=== PATIENT | male | born 1995 | race African-American/Black ===

== ENCOUNTER 2017-12-22 18:58 | Emergency (ER) | payer BC, SELFPAY ==
[2017-12-22 19:00] VITALS: BP 154/91; PULSE 101; RESP 21; TEMP 37.2; O2SAT 98; BMI 21.9
--- NOTE | 2017-12-22 19:51 | CT_ITS ---
STUDY: CT BRAIN WITHOUT CONTRAST REASON FOR EXAM: Male, 22 years old. Confusion. RADIATION DOSAGE (If Supplied By Facility): CTDIvol = ( 44.99 ) mGy, DLP = ( 779.24 ) mGycm TECHNIQUE: Transaxial CT imaging of the brain was performed without administration of intravenous contrast material. Individualized dose optimization techniques were used for this CT. COMPARISON: None. FINDINGS: Normal soft tissue structures. Normal calvarium. Normal size ventricles and extra-axial spaces for the patient's age. Normal white matter tracts of the cerebral hemispheres. Normal basal ganglia and thalami. Normal brainstem. Normal cerebellum. There is no intracranial hemorrhage. There are no findings of an acute ischemic infarction. There is minimal opacification of the ethmoid sinuses consistent with a history of sinusitis. CT/Brain/Head without Contrast IMPRESSION: No acute intracranial process. Electronically Signed: Alysha Orellana MD at 21:07 EDT Tel , Service support ,
--- NOTE | 2017-12-22 19:52 | EKG12_ITS ---
Test Reason : CONFUSION Blood Pressure : / mmHG Vent. Rate : 087 BPM Atrial Rate : 087 BPM P-R Int : 136 ms QRS Dur : 080 ms QT Int : 340 ms P-R-T Axes : 071 064 022 degrees QTc Int : 409 ms Normal sinus rhythm ST elevation, consider early repolarization Borderline ECG Confirmed by ADILSON BUTLER, CHELSEY ([id number]), newspaper editor WAN ANDERSON ([id number]) on 12/28/2017 1:33:05 PM Referred By: LUZ Confirmed By:CHELSEY DE ANDA MD
--- NOTE | 2017-12-22 19:56 | ED.RN ---
NO OLD EKGS IN MUSE
[2017-12-22 20:00] VITALS: RESP 18; O2SAT 99
[2017-12-22 20:05] LABS: Absolute Lymphocyte Count 1.99 X10^3/ul (0.83-4.51); Absolute Neutrophil Count 6.9 X10^3/uL (2.0-7.7); Basophil# 0.03 X10^3/uL; Basophil% 0.3 % (0-1); Eosinophil# 0.01 X10^3/uL; Eosinophils% 0.1 % (0-5); Hematocrit 43.6 % (40-54); Lymphocyte # 1.99 X10^3/ul (4.0); Lymphocyte % 19.4 % (19-41); Mean Corp Hgb Conc 34.4 g/gl (32-36); Mean Corpuscular Hgb 31.6 pg (27.0-32.0); Mean Corpuscular Volume 91.8 fL (80-94); Mean Platelet Vol. 10.6 fl (6.2-12.0); Monocyte% 12.7 % (0-10); Neutrophil # 6.91 X10^3/uL (2.7-7.7); Neutrophil % 67.4 % (47-70); Platelet Count 211 K/mm3 (150-450); RBC Distribution Width CV 11.8 % (11.6-14.6); RBC Distribution Width SD 39.6 fl (35.1-43.9); Red Blood Count 4.75 M/mm3 (4.6-6.2); White Blood Count 10.3 K/mm3 (4.4-11.0)
[2017-12-22 20:06] LABS: POSITIVE COUNT NO; POSITIVE DIFFERENTIAL NO; POSITIVE MORPHOLOGY NO
[2017-12-22] MEDS: Ziprasidone IM 20 MG/ML VIAL IM (20:06)
[2017-12-22 20:18] LABS: AST(SGOT) 921 U/L (15-37); Alanine Aminotransfer ALT/SGPT 137 U/L (16-61); Albumin, Serum 4.5 g/dL (3.2-5.0); Alkaline Phosphatase 67 U/L (45-117); Anion Gap 14 (5-15); BUN 25 mg/dL (7-18); BUN/Creat Ratio 20.5 RATIO (10-20); Calcium,Total 9.6 mg/dL (8.5-10.1); Chloride 102 mmol/L (98-107); Creatinine, Serum 1.22 mg/dL (0.70-1.30); EST Glomerular Filtration Rate 77 mL/min (>60); Est Glom Filt Rate - Afr Amer 94 mL/min (>60); Globulin 4.3 g/dL (2.2-4.2); Glucose 99 mg/dL (74-106); Potassium 3.9 mmol/L (3.5-5.1); Protein, Total 8.8 g/dL (6.4-8.2); Sodium Level 138 mmol/L (136-145)
[2017-12-22 20:25] LABS: Red Blood Cells-Urine 0 SEEN /hpf (0-5); Squamous Epithelial Cells - UA 0 SEEN /hpf (0-5)
[2017-12-22 20:26] LABS: Alcohol, Blood (Medical)-Serum < 3.0 mg/dL
[2017-12-22 20:30] LABS: Color, Urine Yellow (Yellow); Glucose, Dipstick Normal (Normal); Leukocyte Esterase-Dipstick 25 /ul (Negative); Nitrite-Dipstick Negative (Negative); Occult Blood-Urine 250 /ul (Negative); Protein-Dipstick 100 mg/dl (Negative); Urine Clarity Cloudy (Clear); Urine Urobilinogen 1 mg/dl (Normal)
[2017-12-22 20:32] LABS: Urine Bilirubin Dipstick 1 mg/dL (Negative)
[2017-12-22 20:33] LABS: Ketone-Dipstick 150 mg/dl (Negative)
[2017-12-22 20:47] LABS: Amphetamine Urine VISTA NEGATIVE (<1000 ng/mL); Barbiturate Urine VISTA NEGATIVE (< 200 ng/mL); Benzodiazepine Urine VISTA NEGATIVE (< 200 ng/mL); Cocaine Urine VISTA NEGATIVE (< 300 ng/mL); Ecstacy Urine VISTA NEGATIVE (< 500 ng/mL); Methadone Urine VISTA NEGATIVE (< 300 ng/mL); PCP Urine VISTA NEGATIVE (< 25 ng/mL); THC Urine VISTA POSITIVE (< 50 ng/mL); Vista UDS pH Range 5
[2017-12-22 20:50] LABS: Fine Granular Cast- Urine 0-5 SEEN /lpf (0-5); Hyaline Cast 0-5 SEEN /lpf (0-5); Mucous, Urine 2+ /hpf (<or=2+)
[2017-12-22 20:53] LABS: White Blood Cells 0-5 SEEN /hpf (0-5)
[2017-12-22 20:55] LABS: Bacteria RARE /hpf (None Seen)
[2017-12-22 21:39] VITALS: PULSE 90; RESP 16; O2SAT 97
[2017-12-22 23:56] VITALS: BP 93/63; PULSE 79; RESP 16; O2SAT 98
--- NOTE | 2017-12-23 00:20 | ED.DCSUM_ITS ---
- ER Visit Summary Date of Service: 12/23/17 Chief Complaint: Bizarre behavior History of Present Illness: The patient is a 22 M patient has a history of seizures he supposed to be on Keppra but does not like the way it makes you feel so he uses THC instead. He had a seizure Sunday ever since then he has been confused he tried to combat his confusion with more THC. His is tell me that he is acting bizarre he thinks people will arrested him he apparently sees cockroaches when there are cockroaches, he has no head injury no fever chills no chest pain. He is alert and oriented ?3 when talking to me. Physical Examination: [ Not appear in acute distress. Moist mucous membranes, no obvious facial deformity No C-spine tenderness supple neck. Regular rate and rhythm without any obvious murmurs Clear lungs bilaterally speaking in full sentences without any obvious respiratory distress Abdomen soft and nontender no guarding or rebound Moves all extremities without any difficulty or pain. Skin does not show any obvious rashes or lesions, no trauma. Alert oriented ?3 with no gross focal deficit He has pressured speech, he does have some bizarre behavior but he is lucid. He is not slurring his speech. ] Emergency Department Course and Treatment: [Patient has an unremarkable workup including CT of the head he has no more seizure. I did give him p.o. Keppra. [facility] IM was given initially because he was not following commands and I went to get a CT for his safety to make sure there is no intracranial pathology also wanted to get blood work and a urinalysis for tox screen this is only positive for THC. He was observed and remained stable I do not see a reason for medical admission, I will call psychiatry for evaluation.] Oncoming ED physician will take over the care of the patient after psychiatry sees. Impression: [Acute psychosis] This note was generated with [employer] dictation software. It may contain incorrect words, spelling, and punctuation that were not noted in review of the chart prior to signing ED Disposition - Plan for ED Patient: Chief Complaint: Confusion Referrals: Care Physician,No Primary [Primary Care Provider] -
[2017-12-23] MEDS: levETIRAcetam 500 MG Tablet PO (01:00)
[2017-12-23 03:00] VITALS: BP 105/56; PULSE 80; RESP 16; O2SAT 100
[2017-12-23 05:36] VITALS: BP 104/54; PULSE 82; RESP 16; O2SAT 100
--- NOTE | 2017-12-23 07:19 | NURSING ---
PAGED CRISIS. FABIO CALLED BACK, SHE WILL LET SANIA KNOW AT SHIFT CHANGE ABOUT PATIENT
--- NOTE | 2017-12-23 08:31 | NURSING ---
MARTELL FROM CRISIS CALLED STATING SHE WOULD BE HERE WITHIN THE NEXT HOUR.
--- NOTE | 2017-12-23 09:51 | NURSING ---
SANIA, CRISIS, HERE
--- NOTE | 2017-12-23 11:57 | ED.DEP ---
ED Disposition - Plan for ED Patient: Disposition: Home or Assisted Living Chief Complaint: Confusion Instructions: Behavior Changes After Brain Injury Referrals: Behavioral,Health [facility] [GROUP OF PHYSICIANS] - Counseling,Center [GROUP OF PHYSICIANS] -
--- NOTE | 2017-12-23 11:58 | DCINST.ED_ITS ---
ED Disposition - Plan for ED Patient: Disposition: Home or Assisted Living Chief Complaint: Confusion Instructions: Behavior Changes After Brain Injury Referrals: Behavioral,Health [facility] [GROUP OF PHYSICIANS] - Counseling,Center [GROUP OF PHYSICIANS] -
== END 2017-12-23 12:19 | disposition home or self-care (01) ==
PROVIDERS: Emergency Provider Emergency Medicine
DX: R45.1 Restlessness and agitation (principal); F23 Brief psychotic disorder; R56.9 Unspecified convulsions; Z91.14 Patient's other noncompliance with medication regimen; F12.90 Cannabis use, unspecified, uncomplicated
CPT/HCPCS: 70450; 80053; 80307; 80320; 81001; 85025; 93005; 96372; 99282; G0480; J3486